=== PATIENT | female | born 2005 | race African-American/Black ===

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

== ENCOUNTER 2025-03-30 02:26 | Emergency (ER) | payer OTHER ==
[~2025-03-30] VITALS: Ht 172.7 cm; Wt 113.6 kg
[~2025-03-30 02:26] MED LIST: LUNE2TAB28 PO; OMEP40CA4 PO; SUCR1SS PO
[2025-03-30 07:59] LABS: BASO # 0.0 10^3/uL (0.0-0.2); BASO % 0.4 % (0.0-1.0); EOS # 0.0 10^3/uL (0.0-0.5); EOS % 0.2 % (0.0-3.0); LYMPH # 2.0 10^3/uL (1.5-5.0); LYMPH % 21.8 % (24.0-44.0); MONO # 0.8 10^3/uL (0.0-0.8); MONO % 8.3 % (2.0-8.0); NEUTROPHILS # 6.4 10^3/uL (1.5-8.5); NEUTROPHILS % 69.1 % (36.0-66.0); PLATELET COUNT, AUTOMATED 305 10^3/uL (150-450)
[2025-03-30 08:18] LABS: ALT/SGPT < 9 U/L (7.0-40); AST/SGOT 11 U/L (<34); CALCIUM LEVEL 9.3 MG/DL (8.5-10.1); CARBON DIOXIDE LEVEL 28 MMOL/L (20-31); CHLORIDE LEVEL 105 MMOL/L (98-107); CREATININE FOR GFR 0.77 MG/DL (0.55-1.30); GLOMERULAR FILTRATION RATE > 90.0 (>60); POTASSIUM SERUM 4.0 MMOL/L (3.5-5.1); SODIUM LEVEL 143 MMOL/L (136-145)
[2025-03-30] MEDS: levETIRAcetam INJection 1,000 MG in IV 1 EA IV ONE (08:57)
[2025-03-30 09:30] VITALS: BP 109/53; TEMP 97.6; O2SAT 99
== END 2025-03-30 09:32 | disposition home or self-care (01) ==
LOC: M ED 02:26
DX: G40.89 Other seizures (principal); Z79.899 Other long term (current) drug therapy
CPT/HCPCS: 80048; 80076; 80177; 83605; 85025; 93041; 94760; 96374; 99285; J1953